=== PATIENT | male | born 1970 | race Caucasian/White ===

== ENCOUNTER 2018-03-05 11:08 | Inpatient (IN) ==
[2018-03-05] MEDS: Sod Chloride 0.9% Inj 1,000 ML IV.CONT SCH (18:39)
[2018-03-05] MEDS: Lactobacillus Acidophilus/L. Spores Tablet PO SCH (18:39)
[2018-03-06 07:10] LABS: Baso % (Auto) 0.5 % (0.0-2.0); Eos # (Auto) 0.1 th/mm3 (0.0-0.4); Eos % (Auto) 1.9 % (0.0-4.0); Hematocrit 42.9 % (39.0-51.0); Hemoglobin 14.6 gm/dL (13.0-17.0); Lymph # (Auto) 0.9 th/mm3 (1.0-4.8); Lymph % (Auto) 12.6 % (9.0-44.0); Mean Corpuscular Hemoglobin 32.3 pg (27.0-34.0); Mean Corpuscular Volume 94.9 fL (80.0-100.0); Mean Platelet Volume 8.4 fL (7.0-11.0); Mono # (Auto) 0.7 th/mm3 (0.0-0.9); Mono % (Auto) 9.9 % (0.0-8.0); Neut # (Auto) 5.2 th/mm3 (1.8-7.7); Neut % (Auto) 75.1 % (16.0-70.0); Platelet Count 243 th/mm3 (150-450); Red Blood Count 4.53 mil/mm3 (4.50-5.90); Red Cell Distribution Width 11.9 % (11.6-17.2); White Blood Count 6.9 th/mm3 (4.0-11.0)
[2018-03-06 07:20] LABS: Chloride 102 meq/L (98-107); Sodium 139 meq/L (136-145)
[2018-03-06 07:35] LABS: Calcium 8.3 mg/dL (8.5-10.1)
[2018-03-06 07:36] LABS: Anion Gap 9 meq/L (5-15); Blood Urea Nitrogen 10 mg/dL (7-18); Carbon Dioxide 28.1 meq/L (21.0-32.0); Glucose,Random 102 mg/dL (74-106)
[2018-03-06 07:38] LABS: Alanine Aminotransferase 35 U/L (12-78)
[2018-03-06 07:39] LABS: Aspartate Aminotransferase 14 U/L (15-37); Glomerular Filtration Rate Greater Than 89 mL/min (>89)
[2018-03-06 07:41] LABS: Alkaline Phosphatase 118 U/L (45-117)
[2018-03-06] MEDS: Sod Chloride 0.9% Inj 1,000 ML IV.CONT SCH (08:39)
[2018-03-06] MEDS: Lactobacillus Acidophilus/L. Spores Tablet PO SCH ×3 (08:39→17:37)
--- NOTE | 2018-03-06 10:14 | P.HPIM ---
History of Present Illness Service: Mr. Head is a 47-year-old male. He has no previous known medical history. He came in secondary to left lower quadrant abdominal pain. On imaging he is found to have diverticulitis with a 1.6 cm abscess. He was unaware of any diverticula. He is treated with antibiotics since last night and has pain medications provided also. This morning he says he is feeling better. No fevers overnight. We discussed possibility of repeat imaging tomorrow to ensure no progression of abscess or perforation. Primary Care Physician: Geoffrey Means MD Inpatient Certification: I certify that the inpatient services were ordered in accordance with Medicare regulations governing the order. This includes certification that hospital inpatient services are reasonable and necessary and in the case of services not specified as inpatient-only under 42 CFR 419.22(n), that they are appropriately provided as inpatient services in accordance to with the 2-midnight benchmark under 43 CFR 412.3(e) Estimated Total Length of Stay (Days): 3 Plans for Post Hospital Care: Home Review of Systems Constitutional: No fevers, no chills no night sweats, no fatigue, no weakness Eyes: No eye pain, no blurry vision, no loss of vision ENT: No sore throat, no ear pain, no rhinorrhea Cardiovascular: No chest pain, no tachycardia, no palpitations, no shortness of breath, no syncope Respiratory: No wheezing, no cough, no shortness of breath Gastrointestinal: abdominal pain, no black tarry stools, no bright red blood per rectum, no vomiting, no diarrhea Musculoskeletal: No joint pain, no muscle cramps, no stiffness Integumentary: No rash, no ulcers, no drainage Neurologic: No sensory loss, no loss of motor function, no dizziness Psychiatric: No behavioral changes, no hallucinations, no suicidal ideations PMFSH - History History Provided By: Patient - Medical History Medical History: Medical History (Last Updated 03/05/18 @ 11:50 by Alondra Abraham RN) Patient denies medical problems - Surgical History Surgical History: Surgical History (Last Updated 03/05/18 @ 11:50 by Alondra Abraham RN) History of ankle surgery - Family History Family History: Family History (Last Updated 03/06/18 @ 10:11 by Lencho Ovalle MD) Other Osteoarthritis - Tobacco History Second Hand Smoke Exposure: No Smoking Status: Never smoker - Alcohol History How Often Do You Have a Drink Containing Alcohol: Never - Substance Use History Substance History: No History of Abuse - Travel History Recent Travel in the [place] Within the Last 8 Weeks: No Recent Travel Out of the Country Within the Last 8 Weeks: No Medications and Allergies Active Medications: Active Medications Hydrocodone Bitart/Acetaminophen (Preston 5/325) 1 tab PO Q4H PRN PRN Reason: Pain 3 to 6 Hydrocodone Bitart/Acetaminophen (Preston 10/325) 1 tab PO Q4H PRN PRN Reason: Pain 7 to 10 Al Hydroxide/Mg Hydroxide (Milk Of Magnesia Liq) 30 ml PO Q12H PRN PRN Reason: Mild Constipation Sodium Chloride (Ns Inj) 1,000 mls @ 75 mls/hr IV.CONT .[id number] [facility] Last Admin: 03/06/18 08:39 Dose: 75 mls/hr Metronidazole/Sodium Chloride (Flagyl 500 Mg Inj) 100 mls @ 100 mls/hr IV.SIG Q8H [facility] Last Infusion: 03/06/18 07:08 Dose: Infused Levofloxacin/Dextrose (Levaquin 750 Mg Premix Inj) 150 mls @ 100 mls/hr IV.SIG Q24H JAZZY Last Infusion: 03/06/18 04:22 Dose: Infused Lactobacillus Acidophilus (Lactinex) 1 tab PO TID JAZZY Last Admin: 03/06/18 08:39 Dose: 1 tab Ondansetron HCl (Zofran Inj) 4 mg IV.PUSH Q6H PRN PRN Reason: NAUSEA OR VOMITING Allergies Allergy/AdvReac Type Severity Reaction Status Date / Time ibuprofen Allergy Unknown Hives Verified 03/05/18 11:50 Home Medications Medication Instructions Recorded Confirmed Type No Known Home Medications 03/05/18 03/06/18 History Exam Vital signs: Vital Signs 03/05/18 18:30 03/06/18 00:00 Temperature 98.9 F 97.5 F L Pulse Rate 86 85 Respiratory Rate 20 18 Blood Pressure 157/98 H 140/87 Pulse Oximetry 96 98 Intake & Output 03/05/18 03/06/18 03/06/18 18:59 06:59 18:59 Intake Total 850 / 850 1100 / 1100 Balance 850 / 850 1100 / 1100 Weight 79 kg Intake: IV 250 / 250 1100 / 1100 NS Inj 1,000 ML @ 75 mls/hr IV. 1000 / 1000 CONT .[id number] JAZZY Rx#:[id number] Levaquin 750 mg Premix Inj 150 150 / 150 ML @ 100 mls/hr IV.SIG Q24H JAZZY Rx#:[id number] Flagyl 500 MG Inj 100 ML @ 100 100 / 100 100 / 100 mls/hr IV.SIG Q8H JAZZY Rx#: [id number] Oral 600 / 600 Other: # Voids 1 Weight On Admission 80.1 kg Narrative: GENERAL: NAD, A&Ox3 HEAD: Normocephalic. NECK: Supple, trachea midline. No lymphadenopathy. EYES: No scleral icterus. No injection or drainage. CARDIOVASCULAR: Regular rate and rhythm without murmurs, gallops, or rubs. RESPIRATORY: Breath sounds equal bilaterally. No accessory muscle use. GASTROINTESTINAL: Abdomen soft, non-tender, nondistended. MUSCULOSKELETAL: No cyanosis, or edema. SKIN: Warm and dry. NEURO: No focal neurological deficits. Results - Labs CBC & Chem 7: 03/06/18 05:38 03/06/18 05:38 Labs: Short CBC 03/06/18 Range/Units 05:38 WBC 6.9 (4.0-11.0) th/mm3 Hgb 14.6 (13.0-17.0) gm/dL Hct 42.9 (39.0-51.0) % Plt Count 243 (150-450) th/mm3 BMP 03/06/18 05:38 Sodium 139 Potassium 4.0 Chloride 102 Carbon Dioxide 28.1 BUN 10 Creatinine 0.89 Calcium 8.3 L Liver Function 03/06/18 Range/Units 05:38 Total Bilirubin 1.2 H (0.2-1.0) mg/dL AST 14 L (15-37) U/L ALT 35 (12-78) U/L Alkaline Phosphatase 118 H (45-117) U/L Albumin 3.0 L (3.4-5.0) g/dL Caprini VTE Risk Assessment Caprini VTE Risk Assessment: No/Low Risk (score <= 1) Caprini Risk Assessment Model: Point Value = 1 Point Value = 2 Point Value = 3 Point Value = 5 Age 41-60 Minor surgery BMI > 25 kg/m2 Swollen legs Varicose veins or History of unexplained or recurrent spontaneous Oral contraceptives or hormone replacement Sepsis (< 1 month) Serious lung disease, including pneumonia (< 1 month) Abnormal pulmonary function Acute myocardial infarction Congestive heart failure (< 1 month) History of inflammatory bowel disease Medical patient at bed rest Age 61-74 Arthroscopic surgery Major open surgery (> 45 min) Laparoscopic surgery (> 45 min) Malignancy Confined to bed (> 72 hours) Immobilizing plaster cast Central venous access Age >= 75 History of VTE Family history of VTE Factor V Leiden Prothrombin [id number] Lupus anticoagulant Anticardiolipin antibodies Elevated serum homocysteine Heparin-induced thrombocytopenia Other congenital or acquired thrombophilia Stroke (< 1 month) Elective arthroplasty Hip, pelvis, or leg fracture Acute spinal cord injury (< 1 month) Prophylaxis Regimen: Total Risk Factor Score Risk Level Prophylaxis Regimen 0-1 Low Early ambulation 2 Moderate Order ONE of the following: *Sequential Compression Device (SCD) *Heparin 5000 units SQ BID 3-4 Higher Order ONE of the following medications: *Heparin 5000 units SQ TID *Enoxaparin/Lovenox 40 mg SQ daily (WT < 150 kg, CrCl > 30 mL/min) *Enoxaparin/Lovenox 30 mg SQ daily (WT < 150 kg, CrCl > 10-29 mL/min) *Enoxaparin/Lovenox 30 mg SQ BID (WT < 150 kg, CrCl > 30 mL/min) AND/OR *Sequential Compression Device (SCD) 5 or more Highest Order ONE of the following medications: *Heparin 5000 units SQ TID (Preferred with Epidurals) *Enoxaparin/Lovenox 40 mg SQ daily (WT < 150 kg, CrCl > 30 mL/min) *Enoxaparin/Lovenox 30 mg SQ daily (WT < 150 kg, CrCl > 10-29 mL/min) *Enoxaparin/Lovenox 30 mg SQ BID (WT < 150 kg, CrCl > 30 mL/min) AND *Sequential Compression Device (SCD) Assessment and Plan - Plan 47-year-old male admitted secondary to acute diverticulitis with abscess Acute diverticulis Continue Levaquin Continue Flagyl Probiotics As needed pain treatments Continue monitoring clinically for any worsening Repeat imaging tomorrow morning If no perforation and if no progression of abscess by tomorrow morning and patient remains clinically improving, could consider discharge tomorrow on oral therapy DVT prophylaxis SCDs H&P: Quality - VTE Deep Vein Thrombosis/Pulmonary Embolism Present on Admission: No
--- NOTE | 2018-03-06 17:24 | P.PN ---
Subjective Interval history: NOT SEEN Physical Exam Vital signs: Vital Signs 03/05/18 18:30 03/06/18 00:00 03/06/18 08:00 Temperature 98.9 F 97.5 F L 98.3 F Pulse Rate 86 85 84 Respiratory Rate 20 18 17 Blood Pressure 157/98 H 140/87 140/90 Pulse Oximetry 96 98 97 03/06/18 12:57 Temperature 97.7 F Pulse Rate 81 Respiratory Rate 16 Blood Pressure 120/78 Pulse Oximetry 96 Intake & Output 03/05/18 03/06/18 03/06/18 18:59 06:59 18:59 Intake Total 850 / 850 1700 / 1700 Balance 850 / 850 1700 / 1700 Weight 79 kg Intake: IV 250 / 250 1700 / 1700 NS Inj 1,000 ML @ 75 mls/hr IV. 1500 / 1500 CONT .[id number] [facility] Rx#:[id number] Levaquin 750 mg Premix Inj 150 150 / 150 ML @ 100 mls/hr IV.SIG Q24H [facility] Rx#:[id number] Flagyl 500 MG Inj 100 ML @ 100 100 / 100 200 / 200 mls/hr IV.SIG Q8H [facility] Rx#: [id number] Oral 600 / 600 Other: # Voids 1 Weight On Admission 80.1 kg Narrative: GENERAL: NAD, A&Ox3 HEAD: Normocephalic. NECK: Supple, trachea midline. No lymphadenopathy. EYES: No scleral icterus. No injection or drainage. CARDIOVASCULAR: Regular rate and rhythm without murmurs, gallops, or rubs. RESPIRATORY: Breath sounds equal bilaterally. No accessory muscle use. GASTROINTESTINAL: Abdomen soft, non-tender, nondistended. MUSCULOSKELETAL: No cyanosis, or edema. SKIN: Warm and dry. NEURO: No focal neurological deficits. Results - Labs CBC & Chem 7: 03/06/18 05:38 03/06/18 05:38 Laboratory Results - last 24 hr 03/06/18 03/06/18 05:38 05:38 CBC w Diff Auto diff final WBC 6.9 RBC 4.53 Hgb 14.6 Hct 42.9 MCV 94.9 MCH 32.3 MCHC 34.0 RDW 11.9 Plt Count 243 MPV 8.4 Neut % (Auto) 75.1 H Lymph % (Auto) 12.6 Stanton % (Auto) 9.9 H Eos % (Auto) 1.9 Baso % (Auto) 0.5 Neut # (Auto) 5.2 Lymph # (Auto) 0.9 L Stanton # (Auto) 0.7 Eos # (Auto) 0.1 Baso # (Auto) 0.0 WBC Differential . Differential Comment . Sodium 139 Potassium 4.0 Chloride 102 Carbon Dioxide 28.1 Anion Gap 9 BUN 10 Creatinine 0.89 Estimated GFR Greater than 89 Random Glucose 102 Calcium 8.3 L Total Bilirubin 1.2 H AST 14 L ALT 35 Alkaline Phosphatase 118 H Total Protein 7.0 D Albumin 3.0 L Assessment and Plan - Plan 47-year-old male admitted secondary to acute diverticulitis with abscess Acute diverticulis Continue Levaquin Continue Flagyl Probiotics As needed pain treatments Continue monitoring clinically for any worsening Repeat imaging tomorrow morning If no perforation and if no progression of abscess by tomorrow morning and patient remains clinically improving, could consider discharge tomorrow on oral therapy DVT prophylaxis SCDs
--- NOTE | 2018-03-07 08:00 | CT ---
EXAM DATE: 03/07/2018 7:44 AM EDT AGE/SEX: 47 years / Male INDICATIONS: Evaluate for perforation or abscess enlargement. CLINICAL DATA: This is the patient's subsequent encounter. Patient reports that signs and symptoms h ave been present for 3 days and indicates a pain score of 0/10. MEDICAL/SURGICAL HISTORY: Diverticulitis. None. ORAL CONTRAST: No oral contrast ingested. RADIATION DOSE: 7.07 CTDI (mGy) COMPARISON: . TECHNIQUE: Multiple contiguous axial images were obtained through the abdomen and pelvis following b olus infusion of 90 ml Omnipaque 350 (iohexol) nonionic water-soluble contrast as a single exam dos e. No oral contrast ingested. Using automated exposure control and adjustment of the mA and/or kV ac cording to patient size, radiation dose was kept as low as reasonably achievable to obtain optimal di agnostic quality images. DICOM format image data is available electronically for review and comparis on. FINDINGS: The lower lungs are clear. Mild fatty replacement to the liver. Gallbladder unremarkable . Pancreas and spleen appear normal Adrenal glands appear normal Symmetrical renal function without renal mass Region the cecum and terminal ileum unremarkable. There is no ascites or adenopathy Minimal diverticuli are present in the sigmoid colon with bowel wall thickening suggesting either col itis or diverticulitis without abscess. There is no free fluid Prostate is prominent Bladder unremarkable Review of bone windows reveals no bony abnormality. CONCLUSION: 1. Minimal interval improvement with apparent diverticulitis colon. No definite abscess 2. There is no free air. Electronically signed by: Tom Ma MD 03/07/2018 7:58 AM EDT
[2018-03-07 08:07] VITALS: BP 133/87; PULSE 66; RESP 18; TEMP 97; O2SAT 99
[2018-03-07] MEDS: Lactobacillus Acidophilus/L. Spores Tablet PO SCH (08:09)
--- NOTE | 2018-03-07 09:49 | P.PN ---
Subjective Interval history: Follow-up diverticulitis. He is doing okay not requiring pain medications. Tolerating diet with regular bowel movement. Advised to have outpatient colonoscopy in 3-6 months. Avoid seeds, nuts, corns and constipation Physical Exam Vital signs: Vital Signs 03/06/18 12:57 03/06/18 19:02 03/06/18 20:00 Temperature 97.7 F 98.4 F 98.6 F Pulse Rate 81 81 70 Respiratory Rate 16 16 20 Blood Pressure 120/78 148/82 H 152/94 H Pulse Oximetry 96 97 99 03/07/18 00:00 03/07/18 08:00 Temperature 98.5 F 97.0 F L Pulse Rate 80 66 Respiratory Rate 20 18 Blood Pressure 161/94 H 133/87 Pulse Oximetry 98 99 Intake & Output 03/06/18 03/07/18 03/07/18 18:59 06:59 18:59 Intake Total 1700 / 1700 1070 / 1070 Balance 1700 / 1700 1070 / 1070 Weight 80 kg Intake: IV 1700 / 1700 350 / 350 NS Inj 1,000 ML @ 75 mls/hr IV. 1500 / 1500 CONT .[id number] [facility] Rx#:[id number] Levaquin 750 mg Premix Inj 150 150 / 150 ML @ 100 mls/hr IV.SIG Q24H [facility]ZZ[facility] Rx#:[id number] Flagyl 500 MG Inj 100 ML @ 100 200 / 200 200 / 200 mls/hr IV.SIG Q8H JAZZ[facility] Rx#: [id number] Oral 720 / 720 Other: # Voids 3 Narrative: GENERAL: NAD, A&Ox3 CARDIOVASCULAR: Regular rate and rhythm without murmurs, gallops, or rubs. RESPIRATORY: Breath sounds equal bilaterally. No accessory muscle use. GASTROINTESTINAL: Abdomen soft, non-tender, nondistended. MUSCULOSKELETAL: No cyanosis, or edema. SKIN: Warm and dry. NEURO: No focal neurological deficits. Results - Labs CBC & Chem 7: 03/06/18 05:38 03/06/18 05:38 - Imaging Impressions Abdomen/Pelvis CT 03/07/18 00:00 CONCLUSION: 1. Minimal interval improvement with apparent diverticulitis colon. No definite abscess 2. There is no free air. - Procedures none Assessment and Plan - Plan 47-year-old male admitted secondary to acute diverticulitis with abscess Acute diverticulis. Clinically improved. Repeat CT with no definite abscess. Continue Levaquin Continue Flagyl Probiotics As needed pain treatments Outpatient colonoscopy. Avoid constipation, seeds, nuts and corn DVT prophylaxis SCDs Discharge Planning: Discharge patient to home Condition on discharge: Improved Regular Diet as tolerated Ad Nayely activity Rx written: April and Blaire Follow-up with primary care physician
== END 2018-03-07 10:04 | disposition home or self-care (01) ==
LOC: NEDDLT 17:47 → PH3 17:47 → OBSVTOIN 17:48
PROVIDERS: ADMIT Internal Medicine; ATTEND Internal Medicine